=== PATIENT | male | born 1965 | race Caucasian/White ===

== ENCOUNTER 2018-02-04 15:41 | Outpatient (CLI) | payer BC ==
--- NOTE | 2018-02-04 18:08 | MRI ---
MRI LEFT ELBOW WITHOUT CONTRAST: HISTORY: Elbow pain. COMPARISON: 12/27/2017 FINDINGS: BONES: There is central osteophyte formation of the capitellum with subchondral cyst formation. The re are small osteophytes of the tubercle, as well as the medial trochlea. No acute fracture. No malalignment. TENDONS: The anterior and posterior bands of the ulna collateral ligament are intact. The radial co llateral ligament is intact, as well as the annular ligament. The lateral ulnar collateral ligament is intact. MUSCLES: Muscle signal and bulk are normal. No atrophy. No edema. NEUROVASCULAR BUNDLES: Intact. CARTILAGE: There is advanced cartilage fissuring with multiple areas of near complete cartilage loss of the capitellum, as well as of the medial radial head. Evaluation of the sagittal STIR images is limited due to motion and lack of evaluation of the medial soft tissues. IMPRESSION: 1. 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 2. Mild lateral epicondylitis, chronic. POS: [facility]
== END 2018-02-04 15:42 | disposition home or self-care (01) ==
LOC: TBSIIMAG 15:41
PROVIDERS: ATTEND Orthopaedic Surgery
DX: M24.022 Loose body in left elbow (principal); M19.022 Primary osteoarthritis, left elbow; M77.12 Lateral epicondylitis, left elbow